=== PATIENT | male | born 2000 | race Caucasian/White ===

== ENCOUNTER 2024-02-26 07:40 | Outpatient (OUT) | payer BC, SELFPAY ==
--- NOTE | 2024-02-26 | XR_ITS ---
The [address] [address] Patient Name: MICHAEL DELGADO MRN: [id number] date: 2000 Sex: M Assigned Patient Location: Current Patient Location: Accession/Order Number: [id number] Exam Date: 02/26/2024 07:47 Report Date: 02/27/2024 06:49 At the request of: LENIN GALLEGOS Procedure: XR ankle LT min 3V PROCEDURE: XR ankle LT min 3V COMPARISON: None. HISTORY: LEFT ANKLE PAIN FINDINGS: BONES:No fracture, acute abnormality, or significant arthropathy. SOFT TISSUES:Negative. No visible soft tissue swelling. EFFUSION:Moderate joint effusion OTHER: Negative. XR/XR ankle LT min 3V IMPRESSION: Joint effusion, no acute fracture Electronically authenticated by: GILDA BARNES Date: 02/27/2024 06:49
== END 2024-02-26 07:41 | disposition home or self-care (01) ==
LOC: EC 07:43
PROVIDERS: Visit Provider Orthopaedic Surgery
DX: M25.572 Pain in left ankle and joints of left foot (principal); M25.472 Effusion, left ankle
CPT/HCPCS: 73610